=== PATIENT | female | born 1970 | race Caucasian/White ===

== ENCOUNTER 2020-12-08 19:52 | Observation (INO) ==
[2020-12-08] MEDS ORDERED: Isovue-370 500 ML BOTTLE IVP ONE (21:38)
[2020-12-08] MEDS ORDERED: Ondansetron 4 MG/2 ML VIAL IVP ONE (21:40)
[2020-12-08] MEDS ORDERED: Morphine Sulfate 2 MG/ML SYRINGE IVP ONE (21:40)
[2020-12-08] MEDS: 0.9 % Sodium Chloride 1,000 ML IVC SCH ×2 (22:12→23:12)
[2020-12-08] MEDS ORDERED: Ringers Solution, Lactated 1,000 ML IVC SCH (23:45)
[2020-12-09] MEDS ORDERED: *HR* LORazepam 2 MG/ML VIAL IVP PRN ×2 (02:16)
[2020-12-09] MEDS ORDERED: Naloxone 0.4 MG/ML INJ IVP PRN (02:28)
[2020-12-09] MEDS: 0.9 % Sodium Chloride 1,000 ML IVC SCH ×8 (03:34→16:05)
[2020-12-09] MEDS: Ringers Solution, Lactated 1,000 ML IVC SCH ×4 (04:27→21:44)
[2020-12-09 05:31] LABS: Hematocrit 33.3 % (35.3-44.9); Hemoglobin 11.3 g/dL (11.5-15.4); Mean Corpuscular HGB Conc 33.9 g/dL (31.6-35.5); Mean Corpuscular Hemoglobin 32.6 pg (28.0-33.3); Mean Platelet Volume 9.8 fL (9.4-12.4); Platelet Count 100 K/mcL (140-400); Red Blood Count 3.47 M/mcL (3.82-4.97); Red Cell Distribution Width 13.4 % (11.5-14.5); White Blood Count 6.1 K/mcL (4.3-11.1)
[2020-12-09 05:50] LABS: BUN/Creatinine Ratio 19 (6-26); Blood Urea Nitrogen 10 mg/dL (6-20); Carbon Dioxide 20 mEq/L (23-29); Chloride 102 mEq/L (98-107); Glucose 62 mg/dL (70-105); Lipase 273 Units/L (11-82); Osmolality,Calculated 281 (280-300); Potassium 3.2 mEq/L (3.5-5.1); Sodium 137 mEq/L (136-145); eGFR For African Americans > 60 (> 60); eGFR For Non-African Americans > 60 (> 60)
[2020-12-09] MEDS: Ondansetron 4 MG/2 ML VIAL IVP PRN ×2 (06:24→21:43)
[2020-12-09] MEDS: *HR* LORazepam 2 MG/ML VIAL IVP PRN ×2 (06:29→15:55)
[2020-12-09] MEDS ORDERED: Potassium Chloride 40 MEQ, Lidocaine 1% 2 ML in 0.9 % Sodium Chloride 500 ML IVPB ONE (07:13)
[2020-12-09] MEDS ORDERED: hydrOXYzine pamoate 25 MG CAPSULE PO PRN (16:43)
[2020-12-09] MEDS: tiZANidine 4 MG TABLET PO SCH (17:51)
[2020-12-09] MEDS ORDERED: Thiamine (B-1) 100 MG, Folic Acid 1 MG, MVI, adult with vitamin K 10 ML in 0.9 % Sodi... IVPB SCH (18:00)
[2020-12-09] MEDS: traZODone 50 MG TABLET PO SCH (21:43)
[2020-12-10] MEDS: *HR* LORazepam 2 MG/ML VIAL IVP PRN ×2 (00:23→06:54)
[2020-12-10 05:03] LABS: Immature Granulocytes % 0.5 % (0-4); Mean Corpuscular Volume 96.7 fL (83.0-100.0)
[2020-12-10 05:05] LABS: Basophils % 0.7 %; Eosinophils # 0.2 K/mcL (0.0-0.6); Eosinophils % 3.6 %; Hematocrit 32.5 % (35.3-44.9); Hemoglobin 10.7 g/dL (11.5-15.4); Immature Platelets 6.9 % (1.1-6.1); Lymphocytes # 1.7 K/mcL (0.6-4.6); Lymphocytes % 42.3 %; Mean Corpuscular HGB Conc 32.9 g/dL (31.6-35.5); Mean Corpuscular Hemoglobin 31.8 pg (28.0-33.3); Mean Platelet Volume 10.7 fL (9.4-12.4); Monocytes # 0.2 K/mcL (0.0-1.3); Monocytes % 5.8 %; Neutrophils # 1.9 K/mcL (1.6-8.9); Red Blood Count 3.36 M/mcL (3.82-4.97); Red Cell Distribution Width 12.8 % (11.5-14.5); Segmented Neutrophils % 47.1 %; White Blood Count 4.1 K/mcL (4.3-11.1)
[2020-12-10 05:06] LABS: Platelet Count 96 K/mcL (140-400)
[2020-12-10 05:21] LABS: Alanine Aminotransferase 100 Units/L (7-52); Albumin 3.6 g/dL (3.5-5.7); Albumin/Globulin Ratio 1.8 (1.1-2.2); Alkaline Phosphatase 71 Units/L (34-104); Aspartate Amino Transferase 180 Units/L (13-39); BUN/Creatinine Ratio 7 (6-26); Bilirubin,Total 0.7 mg/dL (0.3-1.0); Blood Urea Nitrogen 3 mg/dL (6-20); Calcium 8.7 mg/dL (8.6-10.3); Carbon Dioxide 25 mEq/L (23-29); Chloride 102 mEq/L (98-107); Glucose 92 mg/dL (70-105); Osmolality,Calculated 280 (280-300); Potassium 3.2 mEq/L (3.5-5.1); Sodium 137 mEq/L (136-145); Total Protein 5.6 g/dL (6.4-8.9); eGFR For African Americans > 60 (> 60); eGFR For Non-African Americans > 60 (> 60)
[2020-12-10] MEDS ORDERED: Potassium Chloride 40 MEQ, Lidocaine 1% 2 ML in 0.9 % Sodium Chloride 500 ML IVPB ONE (07:50)
[2020-12-10] MEDS: 0.9 % Sodium Chloride 1,000 ML IVC SCH ×23 (07:52→10:35)
[2020-12-10] MEDS: Ringers Solution, Lactated 1,000 ML IVC SCH ×3 (08:08→17:06)
[2020-12-10] MEDS: Loratadine 10 MG TABLET PO SCH (08:10)
[2020-12-10] MEDS: amLODIPine 5 MG TABLET PO SCH (08:10)
[2020-12-10] MEDS ORDERED: Thiamine (B-1) 100 MG, Folic Acid 1 MG, MVI, adult with vitamin K 10 ML in 0.9 % Sodi... IVPB SCH (11:11)
[2020-12-10] MEDS: tiZANidine 4 MG TABLET PO SCH (17:06)
[2020-12-10] MEDS: Ondansetron 4 MG/2 ML VIAL IVP PRN (19:33)
[2020-12-10] MEDS: traZODone 50 MG TABLET PO SCH (21:00)
[2020-12-11] MEDS: Ringers Solution, Lactated 1,000 ML IVC SCH ×2 (00:03→05:57)
[2020-12-11] MEDS: Ondansetron 4 MG/2 ML VIAL IVP PRN (05:57)
[2020-12-11 06:29] VITALS: BP 160/89; PULSE 73; TEMP 98.3; O2SAT 97
[2020-12-11 07:15] LABS: Basophils # 0.1 K/mcL (0.0-0.2); Basophils % 1.2 %; Eosinophils # 0.2 K/mcL (0.0-0.6); Eosinophils % 4.8 %; Hematocrit 34.4 % (35.3-44.9); Hemoglobin 11.2 g/dL (11.5-15.4); Immature Granulocytes % 0.5 % (0-4); Lymphocytes # 2.1 K/mcL (0.6-4.6); Lymphocytes % 49.6 %; Mean Corpuscular HGB Conc 32.6 g/dL (31.6-35.5); Mean Corpuscular Hemoglobin 31.8 pg (28.0-33.3); Mean Corpuscular Volume 97.7 fL (83.0-100.0); Monocytes # 0.3 K/mcL (0.0-1.3); Neutrophils # 1.5 K/mcL (1.6-8.9); Platelet Count 107 K/mcL (140-400); Red Blood Count 3.52 M/mcL (3.82-4.97); Red Cell Distribution Width 13.1 % (11.5-14.5); Segmented Neutrophils % 36.9 %; White Blood Count 4.2 K/mcL (4.3-11.1)
[2020-12-11 07:36] LABS: Alanine Aminotransferase 91 Units/L (7-52); Albumin 3.7 g/dL (3.5-5.7); Albumin/Globulin Ratio 1.8 (1.1-2.2); Alkaline Phosphatase 81 Units/L (34-104); Aspartate Amino Transferase 146 Units/L (13-39); BUN/Creatinine Ratio 5 (6-26); Bilirubin,Total 0.5 mg/dL (0.3-1.0); Blood Urea Nitrogen 2 mg/dL (6-20); Calcium 9.7 mg/dL (8.6-10.3); Carbon Dioxide 28 mEq/L (23-29); Chloride 104 mEq/L (98-107); Globulin 2.1 g/dL (2.4-3.5); Glucose 100 mg/dL (70-105); Osmolality,Calculated 282 (280-300); Potassium 3.6 mEq/L (3.5-5.1); Sodium 138 mEq/L (136-145); Total Protein 5.8 g/dL (6.4-8.9); eGFR For African Americans > 60 (> 60); eGFR For Non-African Americans > 60 (> 60)
[2020-12-11] MEDS: amLODIPine 5 MG TABLET PO SCH (08:02)
[2020-12-11] MEDS: Loratadine 10 MG TABLET PO SCH (08:02)
== END 2020-12-11 10:53 | disposition home or self-care (01) ==
LOC: EMEROOARM 19:52 → CDU 19:52 → SUATTDRO 12-09 01:49 → CDU 12-09 02:53 → 3BNU 12-09 18:43
PROVIDERS: ADMIT Internal Medicine; ATTEND Family Medicine